=== PATIENT | male | born 1950 | race Caucasian/White ===

== ENCOUNTER → 2019-05-29 | Outpatient (CLI) | payer MEDICARE, OTHER ==
[~2019-05-29] MED LIST: ACEASPCAF; HYDACE5 PO; INDO75CR; KETO10 PO; OXYACE5T; PROACE100
== END | disposition home or self-care (01) ==
LOC: PLD 13:02 → LAB SHORT 13:02
DX: L30.8 Other specified dermatitis (principal)
CPT/HCPCS: 88305

== ENCOUNTER → 2019-07-23 | Outpatient (CLI) | payer MEDICARE, OTHER ==
[~2019-07-23] MED LIST changes: +ACIDOPHILUS; +ACTOS; +INDO50S; +LOSA50 PO; +METF500; +SITA100T2 PO; +SYNTHROID150 MCG; +ZOLP5; +Zantac150 MG; +[UNRECOGNIZED DRUG - OTHER]; +[UNRECOGNIZED DRUG - OTHER]
== END ==
LOC: LAB SHORT 11:39 → LAB 11:39
DX: Z01.812 Encounter for preprocedural laboratory examination (principal); E11.65 Type 2 diabetes mellitus with hyperglycemia
CPT/HCPCS: 83036

== ENCOUNTER 2019-07-25 05:52 | Day surgery (SDC) | payer MEDICARE, OTHER ==
[~2019-07-25] VITALS: Ht 170.2 cm; Wt 125.4 kg
--- NOTE | 2019-07-25 07:41 | NUR ---
Ambulatory in Day Surgery. Surgical site prepped with 2% Chlorhexidine cloth wipe. History, Chart, Medications and Allergies reviewed before start of procedure.Lungs clear T/O to Auscultation. Pre-Op teaching done. Pt verbalizes understanding. Patient States Post-Procedure ride home has been arranged. Patient reports completing Chlorhexadine shower X2 prior to admission to hospital.
--- NOTE | 2019-07-25 09:50 | NUR ---
Patient up to Ambulate independently. Gait steady. Discharge instructions reviewed with patient. Patient verbalizes understanding. Copy given to patient to take home. Discharged via wheelchair to private car for ride home WITH FRIEND.
== END 2019-07-25 09:45 | disposition home or self-care (01) ==
LOC: ORSCMMR 05:52 → ORD 07:30 → ORSCMMR 09:45
PROVIDERS: Surgery
PROC: 05HM33Z Insertion of Infusion Device into Right Internal Jugular Vein, Percutaneous Approach (ICD-10-PCS; principal; 2019-07-25 07:30)
PROC: B5131ZA Fluoroscopy of Right Jugular Veins using Low Osmolar Contrast, Guidance (ICD-10-PCS; principal; 2019-07-25 07:30)
DX: D46.A Refractory cytopenia with multilineage dysplasia (principal); I10 Essential (primary) hypertension; E11.9 Type 2 diabetes mellitus without complications; E03.9 Hypothyroidism, unspecified; E66.01 Morbid (severe) obesity due to excess calories; Z68.41 Body mass index [BMI] 40.0-44.9, adult; Z79.899 Other long term (current) drug therapy
CPT/HCPCS: 71045; 82947; C1788; J0690; J1642; J2250; J2704; J3010; J7120

== ENCOUNTER → 2021-05-04 | Outpatient (CLI) | payer MEDICARE, OTHER | LOC: LAB 11:11 → LAB SHORT 11:11 | DX: D48.5 Neoplasm of uncertain behavior of skin (principal); L57.0 Actinic keratosis | CPT/HCPCS: 88305 ==

== ENCOUNTER 2022-06-07 04:05 | Day surgery (SDC) | payer MEDICARE, OTHER ==
[2022-06-07] MEDS ORDERED: ACTOS30 MG PO (10:45)
[2022-06-07] MEDS ORDERED: ACYCLOVIR800 MG PO (10:45)
[2022-06-07] MEDS ORDERED: TRESIBA FL100 UNIT/2 SC (10:47)
[2022-06-07] MEDS ORDERED: CALCIPOTRIENE TOP (10:48)
[2022-06-07] MEDS ORDERED: LEVO750 PO (10:49)
[2022-06-07] MEDS ORDERED: LEVOTHYROXINE150 MC1 PO (10:50)
[2022-06-07] MEDS ORDERED: Fluticasone Pro15 GM TOP (10:52)
== END 2022-06-07 12:07 | disposition home or self-care (01) ==
LOC: ATC 04:05
DX: D46.A Refractory cytopenia with multilineage dysplasia (principal); I10 Essential (primary) hypertension; E11.9 Type 2 diabetes mellitus without complications; E78.5 Hyperlipidemia, unspecified; E03.9 Hypothyroidism, unspecified; Z79.899 Other long term (current) drug therapy
CPT/HCPCS: 36415; 36430; 86850; 86900; 86901; 86920; J7040; P9016

== ENCOUNTER → 2022-10-20 | Outpatient (CLI) | payer MEDICARE, OTHER ==
[~2022-10-20] MED LIST changes: +ACTOS30 MG PO; +ACYCLOVIR800 MG PO; +CALCIPOTRIENE TOP; +Fluticasone Pro15 GM TOP; +LEVO750 PO; +LEVOTHYROXINE150 MC1 PO; +TRESIBA FL100 UNIT/2 SC
[2022-10-20 18:36] LABS: Albumin/Globulin Ratio 0.8 (0.8-1.8); Bilirubin, Total 0.4 mg/dL (0.1-1.0); Bun/Creatinine Ratio 22.4 (12.0-20.0); Calcium, Blood 9.4 mg/dL (8.5-10.1); Creatinine, Blood 0.89 mg/dL (0.60-1.20); Globulin, Blood 3.6 g/dL (2.2-4.0); Potassium, Blood 4.6 mmol/L (3.5-5.5); Total Protein, Blood 6.6 g/dL (6.4-8.2)
== END | disposition home or self-care (01) ==
LOC: LAB SHORT 16:46
PROVIDERS: Physician Assistant
DX: R60.0 Localized edema (principal)
CPT/HCPCS: 80053

== ENCOUNTER 2023-01-17 12:28 | Day surgery (SDC) | payer MEDICARE, OTHER ==
[2023-01-17 10:50] LABS: Hematocrit 21.6 % (37.0-53.0); Hemoglobin 7.4 g/dL (13.5-17.5); Mean Corpuscular HGB 31.8 pg (26.0-34.0); Mean Corpuscular HGB Conc 34.3 g/dL (31.5-36.5); Mean Corpuscular Volume 93 fL (80-100); Mean Platelet Volume 10.9 fL (9.1-12.4); NRBC ABSOLUTE 0.05 K/mm3 (0.00-0.02); NRBC Auto 17.9 /100 WBC (0.0-0.2); Platelet Count 96 K/mm3 (150-400); RDW Coefficient Variation 19.5 % (11.7-14.2); Red Blood Cell Count 2.33 M/mm3 (4.30-5.90)
[2023-01-17 10:55] LABS: White Blood Cell Count 0.28 K/mm3 (4.00-11.30)
[2023-01-17 12:09] LABS: BAND PERCENT MAN 4 % (0-8); BASOPHILS PERCENT MAN 0 % (0-2); EOSINOPHILS PERCENT MAN 0 % (0-6); LYMPHOCYTES % ATYPICAL MANUAL 4 % (0-0); LYMPHOCYTES ABSOLUTE MAN 0.17 K/mm3 (0.84-5.20); LYMPHOCYTES PERCENT MAN 60 % (21-46); MONOCYTES PERCENT MAN 0 % (4-13); NEUTROPHILS ABSOLUTE MAN 0.04 K/mm3 (1.96-9.15); PLASMA CELL ABSOLUTE MAN 0.05 K/mm3 (0.00-0.00); PLASMA CELLS PERCENT MAN 20 % (0-0); SEG NEUTROPHILS PERCENT MAN 12 % (41-73); TOTAL CELLS COUNTED 25
[~2023-01-17 12:28] MED LIST changes: +ONDA4ODT MM
[2023-01-17 13:57] VITALS: BP 142/74
[2023-01-17 14:16] VITALS: BP 137/65
[2023-01-17 15:29] VITALS: BP 144/64
== END 2023-01-17 15:37 | disposition home or self-care (01) ==
LOC: ATC 12:28
PROVIDERS: Internal Medicine Hematology & Oncology
DX: D46.9 Myelodysplastic syndrome, unspecified (principal)
CPT/HCPCS: 36415; 85025; 86850; 86900; 86901; 86923; J1642; J7050; P9016

== ENCOUNTER 2023-01-22 10:03 | Inpatient (IN) | payer MEDICARE, OTHER ==
[~2023-01-22] VITALS: Ht 170.2 cm; Wt 110.0 kg
[2023-01-22 10:24] LABS: BASOPHILS ABSOLUTE AUTO 0.01 K/mm3 (0.00-0.23); BASOPHILS PERCENT AUTO 1 % (0-2); Hematocrit 26.7 % (37.0-53.0); Hemoglobin 9.3 g/dL (13.5-17.5); Mean Corpuscular HGB 30.2 pg (26.0-34.0); Mean Corpuscular HGB Conc 34.8 g/dL (31.5-36.5); Mean Corpuscular Volume 87 fL (80-100); NRBC ABSOLUTE 0.17 K/mm3 (0.00-0.02); NRBC Auto 12.5 /100 WBC (0.0-0.2); Platelet Count 83 K/mm3 (150-400); RDW Coefficient Variation 19.3 % (11.7-14.2); RDW Standard Deviation 52.7 fL (35.1-46.3); Red Blood Cell Count 3.08 M/mm3 (4.30-5.90); White Blood Cell Count 1.36 K/mm3 (4.00-11.30)
[2023-01-22 10:25] LABS: EOSINOPHILS PERCENT AUTO 0 % (0-6); IMMATURE GRAN ABSOLUTE AUTO 0.14 K/mm3 (0.00-0.10); IMMATURE GRAN PERCENT AUTO 10 % (0-1); LYMPHOCYTES ABSOLUTE AUTO 0.45 K/mm3 (0.84-5.20); LYMPHOCYTES PERCENT AUTO 33 % (21-46); MONOCYTES PERCENT AUTO 7 % (4-13); Mean Platelet Volume 13.3 fL (9.1-12.4); NEUTROPHILS ABSOLUTE AUTO 0.66 K/mm3 (1.96-9.15); NEUTROPHILS PERCENT AUTO 49 % (41-73)
[2023-01-22] MEDS ORDERED: OMEP20ER PO (10:33)
[2023-01-22 10:41] LABS: Albumin, Blood 1.3 g/dL (3.4-5.0); Albumin/Globulin Ratio 0.2 (0.8-1.8); Bilirubin, Total 1.2 mg/dL (0.1-1.0); Bun/Creatinine Ratio 32.9 (12.0-20.0); Calcium, Blood 8.6 mg/dL (8.5-10.1); Creatinine, Blood 2.37 mg/dL (0.60-1.20); Globulin, Blood 5.2 g/dL (2.2-4.0); Potassium, Blood 3.9 mmol/L (3.5-5.5); Total Protein, Blood 6.5 g/dL (6.4-8.2)
[2023-01-22 13:56] VITALS: BP 115/59
--- NOTE | 2023-01-22 17:40 | NUR ---
PT CAME UP FROM ER THIS AFTERNOON. ORIENTED TO THE ROOM. PROVIDED SNACKS AND A DRINK. HIS BED IS IN THE LOW POSITON AND CALL LIGHT IS WITHIN REACH.
[2023-01-22 20:51] VITALS: BP 116/64
[2023-01-22 20:53] LABS: Adenovirus Not Detected (NOT DETECT); Bordetella pertussis Not Detected (NOT DETECT); Chlamydophila pneumoniae Not Detected (NOT DETECT); Coronavirus 229E Not Detected (NOT DETECT); Coronavirus HKU1 Not Detected (NOT DETECT); Coronavirus NL63 Not Detected (NOT DETECT); Coronavirus OC43 Not Detected (NOT DETECT); Human Metapneumovirus Not Detected (NOT DETECT); Human Rhinovirus/Enterovirus Not Detected (NOT DETECT); Influenza A/2009-H1 Not Detected (NOT DETECT); Influenza A/H1 Not Detected (NOT DETECT); Influenza A/H3 Not Detected (NOT DETECT); Influenza B Not Detected (NOT DETECT); Mycoplasma pneumoniae Not Detected (NOT DETECT); Parainfluenza Virus 1 Not Detected (NOT DETECT); Parainfluenza Virus 2 Not Detected (NOT DETECT); Parainfluenza Virus 3 Not Detected (NOT DETECT); Parainfluenza Virus 4 Not Detected (NOT DETECT); Respiratory Syncytial Virus Not Detected (NOT DETECT); SARS-Cov-2 (COVID-19), BioFire Not Detected (NOT DETECT)
[2023-01-22 23:13] LABS: Source, Urine Clean Catch
[2023-01-22 23:24] LABS: Appearance, Urine Clear (Clear); Blood, Urine Neg (Neg); Color, Urine Amber (P-Yellow); Glucose Qualitative, Urine Neg (Neg); Ketones, Urine Neg (Neg); Leukocyte Esterase, Urine Neg (Neg); Nitrite, Urine Neg (Neg); Protein, Urine 2+ (Neg); Urobilinogen, Urine 1+ (Normal)
[2023-01-22 23:37] LABS: Bilirubin, Urine 1+ (Neg)
[2023-01-22 23:38] LABS: Red Blood Cells, Urine 0-2 /hpf (0-2); White Blood Cells, Urine 0-2 /hpf (0-5)
[2023-01-22 23:39] LABS: Bacteria Few /hpf; Hyaline Casts 0-2 /lpf (0-2); Squamous Epithelial Cells Rare /hpf (Few)
--- NOTE | 2023-01-23 04:07 | NUR ---
SHIFT SUMMARY A/OX2, IMPULSIVE, ATTEMPTING TO GET OOB T/O THE NIGHT. EASILY REDIRECTABLE. DENIES CHEST PAIN/PRESSURE. SPO2 >92% ON RA. VSS, NO ACUTE CHANGES AT THIS TIME. BED IN LOWEST POSTION WITH CALL LIGHT IN REACH. WILL CONTINUE TO MONITOR AND REPORT TO ONCOMING RN.
[2023-01-23 04:57] LABS: Hematocrit 22.6 % (37.0-53.0); Hemoglobin 7.7 g/dL (13.5-17.5); Mean Corpuscular HGB 30.2 pg (26.0-34.0); Mean Corpuscular HGB Conc 34.1 g/dL (31.5-36.5); Mean Corpuscular Volume 89 fL (80-100); Mean Platelet Volume 12.2 fL (9.1-12.4); NRBC ABSOLUTE 0.14 K/mm3 (0.00-0.02); NRBC Auto 15.4 /100 WBC (0.0-0.2); Platelet Count 56 K/mm3 (150-400); RDW Coefficient Variation 19.7 % (11.7-14.2); RDW Standard Deviation 55.3 fL (35.1-46.3); Red Blood Cell Count 2.55 M/mm3 (4.30-5.90)
[2023-01-23 05:14] LABS: Bun/Creatinine Ratio 39.1 (12.0-20.0); Calcium, Blood 8.2 mg/dL (8.5-10.1); Creatinine, Blood 2.25 mg/dL (0.60-1.20); Potassium, Blood 3.8 mmol/L (3.5-5.5)
[2023-01-23 05:16] LABS: White Blood Cell Count 0.91 K/mm3 (4.00-11.30)
[2023-01-23 07:17] VITALS: BP 121/68
[2023-01-23 14:34] VITALS: BP 104/46
--- NOTE | 2023-01-23 15:47 | NUR ---
SHIFT SUMMARY PT A&OX4, SLOW TO RESPOND AND MOVE. MOOD UP AND DOWN T/O SHIFT. PT VERBALIZES WANT TO DC HOME. EATING MIN. AMOUNT OF MEALS. DR. CEDEÑO IN TO SEE PT THIS SHIFT, STATED POSSIBLE NEPH CONSULT. PT WBC IS @ BASE PER DAVIDSON, AMS IS NOT. CALL LIGHT W/IN REACH. FRIEND IN TO SEE PT T/O SHIFT. CONT/INCONT. URINE DARK CONCENTRATE, URINATING SMALL AMOUNTS. VSS.
--- NOTE | 2023-01-23 18:12 | NUR ---
SHIFT SUMMARY REPORT RECIEVED FROM JOSE MIGUEL AT 1640 ON 01/23/23. PATIENT RESTING IN BED MOST OF SHIFT, REFUSED DINNER AND INSULIN. AGREABLE TO OTHER MEDICATIONS. OTHERWISE COOPERATIVE WITH CARE. AOX4 BUT NOT AWARE OF LIMITATIONS. BED ALARM ON, CALL LIGHT IN REACH. WILL CONTINUE TO MONITOR.
[2023-01-23 18:42] VITALS: BP 130/59
[2023-01-23 20:34] VITALS: BP 86/58
[2023-01-23 21:36] VITALS: BP 113/69
[2023-01-24 05:24] VITALS: BP 103/59
--- NOTE | 2023-01-24 07:44 | NUR ---
SHIFT SUMMARY NOC PT A/O X 3-4. GETS CONFUSED AT TIMES UPON WAKING. PT WAS INCONTINENT OF URINE X 3. PT STILL HAS UNCOLLECTED STOOL SAMPLE TO R/O CDIFF. PT HAS NS INFUSING @ 100 MLS/HR. PT SEEMS TO HAVE ISSUES SWALLOWING MORE THAN 1 PILL AT A TIME, SO ONE AT A TIME SLOWLY WORKS BEST. PT IS CURRENTLY RESTING WITH BED ALARM ON, BED IN LOWEST POSITION, AND CALL LIGHT WITHIN REACH.
[2023-01-24 07:47] VITALS: BP 116/66
[2023-01-24 09:01] LABS: Hematocrit 23.1 % (37.0-53.0); Mean Corpuscular HGB 30.7 pg (26.0-34.0); Mean Corpuscular HGB Conc 34.6 g/dL (31.5-36.5); Mean Corpuscular Volume 89 fL (80-100); NRBC ABSOLUTE 0.17 K/mm3 (0.00-0.02); NRBC Auto 16.5 /100 WBC (0.0-0.2); RDW Coefficient Variation 19.9 % (11.7-14.2); RDW Standard Deviation 55.4 fL (35.1-46.3); Red Blood Cell Count 2.61 M/mm3 (4.30-5.90); White Blood Cell Count 1.03 K/mm3 (4.00-11.30)
[2023-01-24 09:05] LABS: Mean Platelet Volume 11.6 fL (9.1-12.4); Platelet Count 38 K/mm3 (150-400)
[2023-01-24 09:36] LABS: Albumin, Blood 1.2 g/dL (3.4-5.0); Anion Gap 8 mmol/L (6-16); Blood Urea Nitrogen 83 mg/dL (8-24); Bun/Creatinine Ratio 36.9 (12.0-20.0); CO2, Blood 19 mmol/L (21-32); Calcium, Blood 6.8 mg/dL (8.5-10.1); Chloride, Blood 118 mmol/L (98-108); Creatinine, Blood 2.25 mg/dL (0.60-1.20); Glomerular Filtration Rate 30 (60-); Glucose, Blood 153 mg/dL (70-99); Magnesium, Blood 1.8 mg/dL (1.6-2.4); Phosphorus, Blood 2.9 mg/dL (2.5-4.9); Potassium, Blood 3.7 mmol/L (3.5-5.5); Sodium, Blood 145 mmol/L (136-145)
[2023-01-24 09:51] LABS: BAND PERCENT MAN 10 % (0-8); BASOPHILS PERCENT MAN 0 % (0-2); EOSINOPHILS PERCENT MAN 0 % (0-6); LYMPHOCYTES % ATYPICAL MANUAL 2 % (0-0); LYMPHOCYTES ABSOLUTE MAN 0.18 K/mm3 (0.84-5.20); LYMPHOCYTES PERCENT MAN 16 % (21-46); METAMYELOCYTE ABSOLUTE MAN 0.02 K/mm3 (0.00-0.00); METAMYELOCYTE PERCENT MAN 2 % (0-0); MONOCYTES ABSOLUTE MAN 0.06 K/mm3 (0.16-1.47); MONOCYTES PERCENT MAN 6 % (4-13); NEUTROPHILS ABSOLUTE MAN 0.74 K/mm3 (1.96-9.15); PROMYELOCYTE ABSOLUTE MAN 0.02 K/mm3 (0.00-0.00); PROMYELOCYTE PERCENT MAN 2 % (0-0); SEG NEUTROPHILS PERCENT MAN 62 % (41-73); TOTAL CELLS COUNTED 50
--- NOTE | 2023-01-24 12:14 | NUR ---
PT ASSISTED TO THE BSC 2P MODERATE ASSIST. PT MISSED THE COMMODE AND URINATED ON THE FLOOR, VOID UNMEASURED, DARK YELLOW BROWN URINE.
[2023-01-24 15:13] VITALS: BP 95/61
[2023-01-24 17:31] VITALS: BP 88/57
--- NOTE | 2023-01-24 17:51 | NUR ---
CALLED DR MONTEJO- PT BP WAS LOWER THIS EVENING COMPARED TO THIS MORNING. PT HAS BEEN A LITTLE MORE ACTIVE TRANSFERING FROM THE BED TO THE COMODE WITH STAFF ASSISTANCE. PT WAS FINALLY ABLE TO PROVIDE A STOOL SAMPLE TO SEND TO THE LAB, STOOL WAS THICK AND GREENISH BROWN. PT DENIES DIZZINESS OR FEELING OFF. CALLED MD THE PT BP WAS LOWER DESPITE RECIEVING IVF AT 100ML/HR ALL SHIFT. BP WAS RECHECKED MANUALLY FOR ACCURACY. ALSO PER MD NOTE THE PT WAS SUPPOSED TO CONTINUE TO PARTICIPATE WITH PT/OT HOWEVER THERE IS NOT A CURRENT ORDER. IN THE CHART. ORDER PLACED IN ORDER MANAGEMENT PER DR MONTEJO.
--- NOTE | 2023-01-24 18:05 | NUR ---
SPOKE TO DR MONTEJO- SINCE BP IS LOWER DESPITE IVF NEW ORDER FOR STAT CBC RECIEVED. ORDER PLACED IN ORDER MANAGEMENT.
--- NOTE | 2023-01-24 18:48 | NUR ---
SHIFT SUMMARY PATIENT ALERT AND INTERACTIVE THROUGHOUT SHIFT. PATIENT UP TO COMMODE MULTIPLE TIMES TO VOID AND WAS ABLE TO HAVE A LIQUID BROWN/GREEN STOOL. STOOL SPECIMIN SENT TO LAB PER ORDERS. PATIENT DRINKING WATER BUT ONLY EATING BITES OF FOOD. PATIENT HAS NO DESIRE TO EAT AT THIS TIME. URINE DARK BROWN AT START OF SHIFT AND HAS PROGRESSED TO A JOSE MIGUEL COLOR BY END OF SHIFT. PATIENT INCONTINENT X1. MEPILEX PLACED TO COCCYX FOR PREVENTION. COCCYX AREA REDENNED BUT BLANCHES. BARRIER CREAM APPLIED TO RECTUM BECAUSE OF TENDERNESS AFTER HAVING BOWEL MOVEMENT. REPEAT H&H DRAWN BECAUSE AFTERNOON BLOOD PRESSURE 90/S MANUALLY. PATIENT MORE ALERT AT END OF SHIFT BUT EASILY IRRITABLE IF ASKED TO REPEAT HIMSELF, PATIENT IS IMPULSIVE AND SAFTEY MEASURES IN PLACE.
[2023-01-24 18:50] LABS: Hemoglobin 8.1 g/dL (13.5-17.5); Mean Corpuscular HGB 30.1 pg (26.0-34.0); Mean Corpuscular HGB Conc 33.8 g/dL (31.5-36.5); Mean Corpuscular Volume 89 fL (80-100); Mean Platelet Volume 11.4 fL (9.1-12.4); NRBC ABSOLUTE 0.19 K/mm3 (0.00-0.02); NRBC Auto 17.6 /100 WBC (0.0-0.2); RDW Coefficient Variation 20.1 % (11.7-14.2); RDW Standard Deviation 57.7 fL (35.1-46.3); Red Blood Cell Count 2.69 M/mm3 (4.30-5.90); White Blood Cell Count 1.08 K/mm3 (4.00-11.30)
[2023-01-24 19:03] LABS: Platelet Count 41 K/mm3 (150-400)
--- NOTE | 2023-01-24 19:06 | NUR ---
CALLED DR MONTEJO- CRITICAL PLATELET LEVEL, CRITICAL BUT HIGHER THAN PREVIOUS. LEFT A MESSAGE.
[2023-01-24 19:45] VITALS: BP 110/65
[2023-01-24 20:27] LABS: BAND PERCENT MAN 31 % (0-8); BASOPHILS PERCENT MAN 0 % (0-2); EOSINOPHILS PERCENT MAN 0 % (0-6); LYMPHOCYTES ABSOLUTE MAN 0.25 K/mm3 (0.84-5.20); LYMPHOCYTES PERCENT MAN 24 % (21-46); MONOCYTES ABSOLUTE MAN 0.06 K/mm3 (0.16-1.47); MONOCYTES PERCENT MAN 6 % (4-13); NEUTROPHILS ABSOLUTE MAN 0.75 K/mm3 (1.96-9.15); SEG NEUTROPHILS PERCENT MAN 39 % (41-73); TOTAL CELLS COUNTED 100
[2023-01-24 23:08] LABS: Adenovirus F 40/41 Not Detected (NOT DETECT); Astrovirus Not Detected (NOT DETECT); Campylobacter Sp Not Detected (NOT DETECT); Cryptosporidium Not Detected (NOT DETECT); Cyclospora Cayetanensis Not Detected (NOT DETECT); E. Coli O157 Not Detected (NOT DETECT); Entamoeba Histolytica Not Detected (NOT DETECT); Enteroaggregative E. coli-EAEC Not Detected (NOT DETECT); Enteropathogenic E. coli-EPEC Not Detected (NOT DETECT); Enterotoxigenic E. coli-ETEC Not Detected (NOT DETECT); Giardia Lamblia Not Detected (NOT DETECT); Norovirus GI/GII Not Detected (NOT DETECT); Plesiomonas Shigelloides Not Detected (NOT DETECT); Rotavirus A Not Detected (NOT DETECT); Salmonella Sp Not Detected (NOT DETECT); Sapovirus Not Detected (NOT DETECT); Shiga Toxin-prod E. coli-STEC Not Detected (NOT DETECT); Shigella/Enteroin E. coli-EIEC Not Detected (NOT DETECT); Vibrio Cholerae Not Detected (NOT DETECT); Vibrio Sp Not Detected (NOT DETECT); Yersinia Enterocolitica Not Detected (NOT DETECT)
[2023-01-25 06:12] LABS: Hematocrit 21.8 % (37.0-53.0); Hemoglobin 7.6 g/dL (13.5-17.5); Mean Corpuscular HGB 30.5 pg (26.0-34.0); Mean Corpuscular HGB Conc 34.9 g/dL (31.5-36.5); Mean Corpuscular Volume 88 fL (80-100); Mean Platelet Volume 11.7 fL (9.1-12.4); NRBC ABSOLUTE 0.21 K/mm3 (0.00-0.02); NRBC Auto 16.4 /100 WBC (0.0-0.2); RDW Coefficient Variation 20.2 % (11.7-14.2); RDW Standard Deviation 55.3 fL (35.1-46.3); Red Blood Cell Count 2.49 M/mm3 (4.30-5.90); White Blood Cell Count 1.28 K/mm3 (4.00-11.30)
[2023-01-25 06:25] LABS: Platelet Count 37 K/mm3 (150-400)
[2023-01-25 06:29] LABS: Albumin, Blood 1.1 g/dL (3.4-5.0); Anion Gap 8 mmol/L (6-16); Blood Urea Nitrogen 72 mg/dL (8-24); CO2, Blood 18 mmol/L (21-32); Chloride, Blood 117 mmol/L (98-108); Creatinine, Blood 2.18 mg/dL (0.60-1.20); Glomerular Filtration Rate 31 (60-); Glucose, Blood 137 mg/dL (70-99); Magnesium, Blood 1.8 mg/dL (1.6-2.4); Phosphorus, Blood 2.9 mg/dL (2.5-4.9); Potassium, Blood 3.5 mmol/L (3.5-5.5); Sodium, Blood 143 mmol/L (136-145)
--- NOTE | 2023-01-25 06:35 | NUR ---
SHIFT SUMMARY PT LAYING IN BED WITH EYES CLOSED DURING BEDSIDE REPORT- IV INFUSING WITHOUT PROBLEMS- PT DENIES PAIN- PT PUT ON CONTACT PRECAUTIONS FOR GI PANEL PENDING- NEUTROPENIC PRECAUTIONS IN PLACE- PT TOOK SCHEDULED HS MEDS WITHOUT PROBLEMS, PT HAD INCONTIENT EPISODE OF LOOSE STOOL- PT CONFUSED AND HAD IT ALL OVER HIS HANDS AND ON HIS BLANKETS- CLEANED UP PT, COMPLETE BED CHANGE DONE- APPLIED CALMOSEPTINE CREAM AROUND RECTUM AREA D/T REDNESS AND PT COMPLAINS OF PAIN WHEN BEING WIPED- PT REMOVED FROM CONTACT PRECAUTIONS- GI PANEL ALL NEGATIVE, IV FLUIDS INFUSING T/O NIGHT WITHOUT PROBLEMS, PT USING THE FEMALE URINAL WITH ASSISTANCE- ENCOURAGED PT TO DRINK MORE LIQUIDS- PT AGREED AND DRINKING BOTTLED WATER- BED LOW POSITION, CALL LIGHT WITHIN REACH
[2023-01-25 06:42] LABS: BAND PERCENT MAN 14 % (0-8); BASOPHILS PERCENT MAN 0 % (0-2); EOSINOPHILS PERCENT MAN 0 % (0-6); LYMPHOCYTES ABSOLUTE MAN 0.32 K/mm3 (0.84-5.20); LYMPHOCYTES PERCENT MAN 25 % (21-46); METAMYELOCYTE ABSOLUTE MAN 0.02 K/mm3 (0.00-0.00); METAMYELOCYTE PERCENT MAN 2 % (0-0); MONOCYTES ABSOLUTE MAN 0.07 K/mm3 (0.16-1.47); MONOCYTES PERCENT MAN 6 % (4-13); NEUTROPHILS ABSOLUTE MAN 0.84 K/mm3 (1.96-9.15); SEG NEUTROPHILS PERCENT MAN 52 % (41-73); TOTAL CELLS COUNTED 63
[2023-01-25 08:02] VITALS: BP 106/59
--- NOTE | 2023-01-25 14:06 | NUR ---
PT OKED TO PROVIDE INFO TO FRIEND KAVYA DUDLEY
--- NOTE | 2023-01-25 14:35 | NUR ---
Attempted initial visit with new referral received this am. Review of EMR and case conferenced with pt's RN. Upon arrival to the room, pt was doing some paperwork with two staff members and a granulizing machine operator was waiting outside the door to go in and draw for labs. I will return later today if possible.
[2023-01-25 16:19] VITALS: BP 122/65
--- NOTE | 2023-01-25 16:35 | NUR ---
Second attempt to see pt after RN notified me that all other staff out of room. Knocked and entered room. Pt sleeping soundly. He did not wake to voice or gentle touch. Will try again in am.
--- NOTE | 2023-01-25 19:15 | NUR ---
RECEIVED REPORT AND ASSUMED CARE OF PT. PT REPORTED BM, DAY SHIFT RN ASSISTED THIS RN TO ASSIST PT. CALL LIGHT IN REACH. PT REQUESTED ICE CHIPS, PER [employer] STANDARD OF PRACTICE DOES NOT INCLUDE ICE CHIPS FOR PT ON NEUTROPENIC PRECAUTIONS.
--- NOTE | 2023-01-25 20:00 | NUR ---
SHIFT SUMMARY- PT STOOL SAMPLE CAME BACK NEGATIVE FOR C-DIFF. PT IS STILL HAVING FREQUENT INCONTINENT WATERY AND MUCOSY STOOLS. THIS EVENING THE PT DID DRINK HIS GLUCERNA, AT SHIFT CHANGE A FULL BED CHANGE WAS PERFORMED. PT HAD A LARGE BROWN LIQUID STOOL REQUIRING LINNEN CHANGE. PT HAS AN ORDER TO START BANATROL FLAKES TONIGHT. NIGHT RN ASSISTED WITH THE BED CHANGE. CARLY ANAL SKIN IS A LITTLE TENDER AND EXCORIATED. PT IS IN BED, CALL LIGHT IN REACH NO S&S OF DISTRESS NOTED AT THE TIME OF SHIFT CHANGE, BEDSIDE REPORT COMPLETED WITH THE NIGHT RN GIOVANNI. IV STARTED LEAKING AT THE TIME OF SHIFT CHANGE, IV SL DURRING BED CHANGE AND NIGHT RN WILL EVALUATE.
[2023-01-25 20:07] VITALS: BP 115/62
[2023-01-25 20:10] VITALS: BP 97/56
[2023-01-26] VITALS (13 sets, daily range): BP systolic 101–144; BP diastolic 57–123
[2023-01-26 05:26] LABS: Hematocrit 20.6 % (37.0-53.0); Hemoglobin 6.9 g/dL (13.5-17.5); Mean Corpuscular HGB Conc 33.5 g/dL (31.5-36.5); Mean Corpuscular Volume 90 fL (80-100); Mean Platelet Volume 12.1 fL (9.1-12.4); NRBC ABSOLUTE 0.25 K/mm3 (0.00-0.02); RDW Coefficient Variation 20.3 % (11.7-14.2); RDW Standard Deviation 58.9 fL (35.1-46.3); White Blood Cell Count 1.19 K/mm3 (4.00-11.30)
[2023-01-26 05:50] LABS: Platelet Count 30 K/mm3 (150-400)
[2023-01-26 05:56] LABS: Anion Gap 6 mmol/L (6-16); Blood Urea Nitrogen 65 mg/dL (8-24); Bun/Creatinine Ratio 30.8 (12.0-20.0); CO2, Blood 19 mmol/L (21-32); Calcium, Blood 6.4 mg/dL (8.5-10.1); Chloride, Blood 118 mmol/L (98-108); Creatinine, Blood 2.11 mg/dL (0.60-1.20); Glomerular Filtration Rate 33 (60-); Glucose, Blood 150 mg/dL (70-99); Magnesium, Blood 1.8 mg/dL (1.6-2.4); Phosphorus, Blood 3.4 mg/dL (2.5-4.9); Potassium, Blood 3.5 mmol/L (3.5-5.5); Sodium, Blood 143 mmol/L (136-145)
[2023-01-26 06:28] LABS: BAND PERCENT MAN 12 % (0-8); BASOPHILS PERCENT MAN 0 % (0-2); EOSINOPHILS PERCENT MAN 0 % (0-6); LYMPHOCYTES ABSOLUTE MAN 0.33 K/mm3 (0.84-5.20); LYMPHOCYTES PERCENT MAN 28 % (21-46); MONOCYTES ABSOLUTE MAN 0.09 K/mm3 (0.16-1.47); MONOCYTES PERCENT MAN 8 % (4-13); NEUTROPHILS ABSOLUTE MAN 0.76 K/mm3 (1.96-9.15); SEG NEUTROPHILS PERCENT MAN 52 % (41-73); TOTAL CELLS COUNTED 50
--- NOTE | 2023-01-26 06:51 | NUR ---
SHIFT SUMMARY: PT IS A&O X 4. VSS, NO ACUTE EVENTS OVERNIGHT. LAB CALLED CRITICAL PLATELET VALUE OF 30, CLINICIAN CALLED, NO NEW ORDERS. PT TAKES HIS PILLS WHOLE WITH WATER[facility] IV FLUIDS INFUSING. PT IS ABLE TO TURN AND REPOSITION HIMSELF IN BED WITH MINIMAL ASSISTANCE. PT IS INCONTINENT OF STOOL, CONTINENT OF URINE. HE USES THE CALL LIGHT APPROPRIATELY. ATTENDS IN PLACE. PT DOES HAVE EXCORIATION TO HIS CARLY-ANAL AREA, BARRIER CREAM APPLIED. WCTM UNTIL REPORT IS GIVEN TO DAY SHIFT RN.
--- NOTE | 2023-01-26 11:34 | NUR ---
Initial [facility] visit: Pt sleeping upon arrival. He was able to wake up today and was agreeable to me sitting at side of bed to visit. He was drowsy at times but engaged in the conversation despite profound fatigue. Pt has orders for transfusion today and is hoping this will give him some energy. He has not been able to participate with OT/PT and would like to. He verbalized that he is unsure if he will be able to continue treatment for his myelodysplastic syndrome after speaking with Dr Brambila earlier in the week and his Drs here. He stated he is unsure he would want to even if it is offered again. He stated the plan, then corrected himself, saying "MY plan", is to get my will finished and then to go on hospice care. He shared that he felt he started the process of finalizing his personal affairs "a little too late". Completing his will/trust and final arrangements are his primary concern at this time. He has an trade mark attorney & his cousin doing much of the leg work to assist him in getting these things done. He said they have most of it done now. I allowed him to ask questions about EOL/hospice care and they were answered. I gave pt info on local hospice providers and possible settings where they would visit him if he was unable to stay in his own home. Information given to pt along with [facility] contact info/card. Brochure "[facility]" given to help generate questions for his providers. I encouraged him to utilize the [facility] services available to him via the hospice agency if he made the decision to enroll in hospice care. Pt denies severe pain. His primary s/s are dry mouth, profound fatigue, feeling depressed and anxious at times r/t his current health status. I assisted him with sips of water t/o my visit. He was able to swallow without s/s of aspiration but he is very weak. Pt expressed appreciation for the visit and asked for the remaining lights to be turned out so that he could rest until lunch. When I returned to leave additional written materials and our card he was sound asleep and did not wake with me in the room. Report on my visit given to his RN. Plan for [facility] f/u for support on Sunday if pt remains hospitalized.
--- NOTE | 2023-01-26 17:59 | NUR ---
SHIFT SUMMARY: PATIENT A&OX3. WITHDRAWN, CALM, PLEASANT AND COOPERATIVE c CARE. PATIENT DENIES CP/PRESSURE, N/V, AND SOB. LUNGS CLEAR. RECEIVED 2 UNITS OF PRBC THIS SHIFT. BS RANGES [id number]. RECEIVED INSULIN COVERAGE PER SLIDING SCALE. PATIENT HAD 5 EPISODE INCONTINENCE OF LIQUID STOOL THIS SHIFT. REPORTS PAIN 3/10 TO CARLY ANAL AREA. APPLIED CALAZIME CREAM TO CARLY ANAL AREA AND MEDICATED X1 c TYLENOL c GOOD RELIEF. REPOSITIONED, CARLY CARE DONE AND ATTENDS CHANGED T/O SHIFT. PATIENT REPORTS NO APPETITE HAD COUPLE BITES c MEALS. ABLE TO TOLERATE PROTIEN SHAKE. RECEIVED SCHEDULED MEDS PER EMAR. VITAL SIGNS REVIEWED. PORT INFUSING NS AT 100 MLS/HR. CALL LIGHT IN REACH.
[2023-01-27 05:05] VITALS: BP 133/67
[2023-01-27 05:31] LABS: Hematocrit 26.1 % (37.0-53.0); Hemoglobin 9.1 g/dL (13.5-17.5); Mean Corpuscular HGB 29.8 pg (26.0-34.0); Mean Corpuscular HGB Conc 34.9 g/dL (31.5-36.5); Mean Corpuscular Volume 86 fL (80-100); NRBC ABSOLUTE 0.23 K/mm3 (0.00-0.02); RDW Coefficient Variation 19.4 % (11.7-14.2); RDW Standard Deviation 51.9 fL (35.1-46.3); Red Blood Cell Count 3.05 M/mm3 (4.30-5.90); White Blood Cell Count 1.15 K/mm3 (4.00-11.30)
[2023-01-27 05:41] LABS: Platelet Count 30 K/mm3 (150-400)
[2023-01-27 05:58] LABS: Albumin, Blood 1.1 g/dL (3.4-5.0); Anion Gap 5 mmol/L (6-16); Blood Urea Nitrogen 53 mg/dL (8-24); Bun/Creatinine Ratio 28.6 (12.0-20.0); CO2, Blood 20 mmol/L (21-32); Chloride, Blood 119 mmol/L (98-108); Creatinine, Blood 1.85 mg/dL (0.60-1.20); Glomerular Filtration Rate 38 (60-); Glucose, Blood 140 mg/dL (70-99); Phosphorus, Blood 3.5 mg/dL (2.5-4.9); Potassium, Blood 3.4 mmol/L (3.5-5.5); Sodium, Blood 144 mmol/L (136-145)
[2023-01-27 06:02] LABS: BAND PERCENT MAN 2 % (0-8); BASOPHILS PERCENT MAN 0 % (0-2); EOSINOPHILS PERCENT MAN 0 % (0-6); LYMPHOCYTES PERCENT MAN 18 % (21-46); METAMYELOCYTE ABSOLUTE MAN 0.02 K/mm3 (0.00-0.00); METAMYELOCYTE PERCENT MAN 2 % (0-0); MONOCYTES ABSOLUTE MAN 0.09 K/mm3 (0.16-1.47); MONOCYTES PERCENT MAN 8 % (4-13); NEUTROPHILS ABSOLUTE MAN 0.82 K/mm3 (1.96-9.15); SEG NEUTROPHILS PERCENT MAN 70 % (41-73); TOTAL CELLS COUNTED 50
--- NOTE | 2023-01-27 06:44 | NUR ---
SHIFT SUMMARY: JORDANA IS A&OX4. VSS, NO ACUTE EVENTS OVERNIGHT. IV FLUIDS INFUSING THROUGH MEDIPORT AT 100 ML/HR. NO INSULIN COVERAGE REQUIRED THIS SHIFT. GFR AND CREATININE SLOWLY IMPROVING, CALCIUM SLOWLY IMPROVING, 7.0 TODAY. ALBUMIN 1.1 WHICH WAS A MARGINAL IMPROVEMENT FROM YESTERDAY. ORDER FOR TOPICAL LIDOCAINE CREAM OBTAINED FOR PT'S EXCORIATIONS TO THE CARLY-ANAL AREA WHICH PT REPORTS HAS PROVIDED RELIEF. ATTENDS IN PLACE, BARRIER CREAM APPLIED TO REDDENED AREAS. ORDER ALSO OBTAINED FOR IMODIUM, WHICH PT STATES IS EFFECTIVE FOR HIM AT HOME. REQUESTED PT TO NOTIFY OF NEXT BM AND IMODIUM CAN BE GIVEN. PT WAS TURNED AND REPOSITIONED TO ALLEVIATE THE PRESSURE TO HIS BOTTOM D/T INCREASE IN REDNESS TO BUTTOCKS. PT SLEPT ON HIS SIDE FOR PART OF THE NIGHT. HE IS ABLE TO MAKE HIS NEEDS KNOWN. PT IS LYING IN BED WITH THE CALL LIGHT IN REACH. WCTM UNTIL REPORT IS GIVEN TO DAY SHIFT RN.
[2023-01-27 07:13] VITALS: BP 140/76
[2023-01-27 17:12] VITALS: BP 134/70
--- NOTE | 2023-01-27 18:53 | NUR ---
SHIFT SUMMARY: PATIENT A&OX3. CONTINUES TO BE WITHDRAWN. SLOW TO RESPOND. PLEASANT AND COOPERATIVE c CARE. PATIENT HAD 3 LIQUID BROWN BM THIS SHIFT AND HAS BEEN IMPROVED FROM YESTERDAY. RECEIVED ONE DOSE OF IMMUDIOM THIS PM c GOOD RELIEF. PATIENT REPORTS HE HAS BEEN FEELING FULL AND FELT LIKE A LOT OF AIR BUILD UP IN HIS ABDOMEN. PER PATIENT "I HAVE BEEN BURPING AND I THINK THAT'S THE REASON WHY I DON'T FEEL LIKE EATING BECAUSE I FELT FULL ALL THE TIME." PATIENT REPORTS IF HE FEEL THIS WAY AT HOME HE TAKES GAS-X. CALLED DR. ZEPEDA TO REPORT PATIENT CONCERN. DR. ZEPEDA PLACED AN ORDER FOR GAS-X PRN. PT WORK c PATIENT MOBILITY IN BED THIS AM. DENIES CP/PRESSURE, SOB, N/V AND GENERALIZED PAIN. RECEIVED SCHEDULED MEDS PER EMAR. VITAL SIGNS REVIEWED. CALL LIGHT IN REACH.
[2023-01-27 19:53] VITALS: BP 135/79
[2023-01-28 05:04] VITALS: BP 145/63
[2023-01-28 06:28] LABS: Hematocrit 24.3 % (37.0-53.0); Hemoglobin 8.4 g/dL (13.5-17.5); Mean Corpuscular HGB 29.6 pg (26.0-34.0); Mean Corpuscular HGB Conc 34.6 g/dL (31.5-36.5); Mean Corpuscular Volume 86 fL (80-100); Mean Platelet Volume 11.1 fL (9.1-12.4); NRBC ABSOLUTE 0.13 K/mm3 (0.00-0.02); NRBC Auto 9.1 /100 WBC (0.0-0.2); RDW Coefficient Variation 19.9 % (11.7-14.2); RDW Standard Deviation 52.9 fL (35.1-46.3); Red Blood Cell Count 2.84 M/mm3 (4.30-5.90); White Blood Cell Count 1.43 K/mm3 (4.00-11.30)
[2023-01-28 06:42] LABS: Platelet Count 36 K/mm3 (150-400)
[2023-01-28 06:43] LABS: Albumin, Blood 1.1 g/dL (3.4-5.0); Anion Gap 8 mmol/L (6-16); Blood Urea Nitrogen 45 mg/dL (8-24); Bun/Creatinine Ratio 27.6 (12.0-20.0); CO2, Blood 17 mmol/L (21-32); Calcium, Blood 7.8 mg/dL (8.5-10.1); Chloride, Blood 118 mmol/L (98-108); Creatinine, Blood 1.63 mg/dL (0.60-1.20); Glomerular Filtration Rate 44 (60-); Glucose, Blood 122 mg/dL (70-99); Magnesium, Blood 1.7 mg/dL (1.6-2.4); Phosphorus, Blood 3.3 mg/dL (2.5-4.9); Potassium, Blood 3.6 mmol/L (3.5-5.5); Sodium, Blood 143 mmol/L (136-145)
[2023-01-28 07:10] LABS: BAND PERCENT MAN 6 % (0-8); BASOPHILS PERCENT MAN 0 % (0-2); EOSINOPHILS PERCENT MAN 0 % (0-6); LYMPHOCYTES ABSOLUTE MAN 0.31 K/mm3 (0.84-5.20); LYMPHOCYTES PERCENT MAN 22 % (21-46); MONOCYTES ABSOLUTE MAN 0.14 K/mm3 (0.16-1.47); MONOCYTES PERCENT MAN 10 % (4-13); NEUTROPHILS ABSOLUTE MAN 0.97 K/mm3 (1.96-9.15); SEG NEUTROPHILS PERCENT MAN 62 % (41-73); TOTAL CELLS COUNTED 50
--- NOTE | 2023-01-28 07:42 | NUR ---
JORDANA WAS VERY QUIET, APPEARED INTROSPECTIVE AND SAD OVERNIGHT. HE IS A&OX4, AND PROFOUNDLY WEAK. NO DIARRHEA STOOLS OVERNIGHT. SIMETHECONE GIVEN TWICE FOR UNCOMFORTABLE ABDOMINAL GAS WHICH DID RELIEVE HIS DISCOMFORT. INCONTINENT OF URINE. HE WAS RELIEVED WE DO HAVE IMMODIUM FOR HIM SHOULD HE NEED IT.
[2023-01-28 08:05] VITALS: BP 131/73
[2023-01-28 15:00] VITALS: BP 116/52
--- NOTE | 2023-01-28 17:07 | NUR ---
SHIFT SUMMARY: PATIENT A&OX3. PATIENT CONTINUES TO BE WITHDRAWN AND DEPRESSED. SLOW TO RESPOND AND VERY WEAK. PLUS 1 EDEMA TO BUE AND HIPS. PLUS 2 PITTING EDEMA TO BLE'S. SCD'S IN PLACED TO BLE'S. NO BM AND 550 MLS OF URINE OUTPUT THIS SHIFT. EXCORIATION TO CARLY ANAL AREA APPLIED LIDOCAINE TOP CREAM c GREAT RELIEF. RECEIVED BEDBATH AND LINEN CHANGED. REPOSITIONED T/O SHIFT. DENIES GENERALIZED PAIN. PATIENT CONTINUES TO HAVE NO APPETITE. DENIES N/V. REPORTS BELCHING T/O THE DAY. RECEIVED SCHEDULED MEDS PER EMAR. VITAL SIGNS REVIEWED. CALL LIGHT IN REACH.
[2023-01-28 19:30] VITALS: BP 118/104
--- NOTE | 2023-01-29 01:05 | NUR ---
DISCUSSED WITH PT THAT STANDARD OF PRACTICE FOR NEUTROPENIC PRECAUTIONS DOES NOT INCLUDE ICE OR WATER FROM THE PANTRY, USE OF BOTTLED WATER ONLY. EDUCATED ON RISK FOR EXPOSURE TO INFECTIOUS AGENTS AND RISK FOR INFECTION. PT STATES THAT HE UNDERSTANDS THE RISKS AND WISHES TO CONTINUE USING THE ICE.
[2023-01-29 03:20] VITALS: BP 138/60
--- NOTE | 2023-01-29 06:15 | NUR ---
SHIFT SUMMARY: JORDANA IS A&OX4. VSS, NO ACUTE EVENTS OVERNIGHT. HE REPORTS ADEQUATE PAIN CONTROL WITH THE TOPICAL LIDOCAINE. HIS APPETITE REMAINS QUITE POOR, BUT IS ABLE TO TOLERATE LIQUIDS WELL. HE HAS REPORTED A DISTENDED ABDOMEN AND BELCHING THIS SHIFT. HE STATES THAT HE PLANS TO DISCHARGE FROM THE HOSPITAL ON HOSPICE, BUT DOES NOT HAVE CAREGIVERS. ATTENDS IN PLACE FOR OCCASIONAL INCONTINENCE, HE HAS REQUESTED TO USE THE URINAL MULTIPLE TIMES THIS SHIFT, USUALLY URINATING SMALL AMOUNTS. HE IS LYING IN BED WITH THE CALL LIGHT IN REACH. WCTM UNTIL REPORT IS GIVEN TO DAY SHIFT RN.
[2023-01-29 08:09] LABS: Hematocrit 23.8 % (37.0-53.0); Hemoglobin 8.2 g/dL (13.5-17.5); Mean Corpuscular HGB 29.7 pg (26.0-34.0); Mean Corpuscular HGB Conc 34.5 g/dL (31.5-36.5); Mean Corpuscular Volume 86 fL (80-100); Mean Platelet Volume 11.3 fL (9.1-12.4); NRBC ABSOLUTE 0.06 K/mm3 (0.00-0.02); NRBC Auto 4.2 /100 WBC (0.0-0.2); RDW Coefficient Variation 20.5 % (11.7-14.2); RDW Standard Deviation 54.9 fL (35.1-46.3); Red Blood Cell Count 2.76 M/mm3 (4.30-5.90); White Blood Cell Count 1.43 K/mm3 (4.00-11.30)
[2023-01-29 08:13] LABS: Platelet Count 42 K/mm3 (150-400)
--- NOTE | 2023-01-29 08:18 | NUR ---
pt laying in bed awake a/ox3, pleasant and cooperative with care, follows commands well, denies pain, but reports his legs are uncomfortable and wants a break from the scuds, these were removed for a while, lungs are clear t/o, resp even and unlaobored, no cough noted, hrr, 2+ edema noted to b/l le, ppp+2, cap refill <3 sec, vs stable, afebrile, iv site is mediport to rcw, running tko, site clear, flushes well, btx4, abd soft nontender, a bit distended, briefs in place for incont, skin has escoriated bottom, otherwise c/w/d, kay, weak, PT/OT working with him, eliud, call light in reach.
[2023-01-29 08:30] VITALS: BP 141/92
[2023-01-29 08:31] LABS: Albumin, Blood 1.1 g/dL (3.4-5.0); Anion Gap 8 mmol/L (6-16); Blood Urea Nitrogen 43 mg/dL (8-24); Bun/Creatinine Ratio 26.9 (12.0-20.0); CO2, Blood 17 mmol/L (21-32); Calcium, Blood 7.8 mg/dL (8.5-10.1); Chloride, Blood 117 mmol/L (98-108); Glomerular Filtration Rate 45 (60-); Glucose, Blood 133 mg/dL (70-99); Phosphorus, Blood 3.7 mg/dL (2.5-4.9); Potassium, Blood 3.9 mmol/L (3.5-5.5); Sodium, Blood 142 mmol/L (136-145)
[2023-01-29 08:32] LABS: BAND PERCENT MAN 2 % (0-8); BASOPHILS PERCENT MAN 0 % (0-2); EOSINOPHILS PERCENT MAN 0 % (0-6); LYMPHOCYTES % ATYPICAL MANUAL 2 % (0-0); LYMPHOCYTES ABSOLUTE MAN 0.34 K/mm3 (0.84-5.20); LYMPHOCYTES PERCENT MAN 22 % (21-46); MONOCYTES ABSOLUTE MAN 0.11 K/mm3 (0.16-1.47); MONOCYTES PERCENT MAN 8 % (4-13); NEUTROPHILS ABSOLUTE MAN 0.97 K/mm3 (1.96-9.15); SEG NEUTROPHILS PERCENT MAN 66 % (41-73); TOTAL CELLS COUNTED 50
--- NOTE | 2023-01-29 11:24 | NUR ---
Requested to visit with [place] after medical floor IDT meeting. Dr. Parker states pt is leaning towards hospice. Met with Orlando in his room. He states he is interested in hospice care and would like to go to a facility for that care. He lives with a roommate, however his roommate is unable to provide care for him. Orlando is very weak and has difficulty adjusting himself in the bed. Discussed hospice care and what is included in that service. Discussed the three agencies that service our area. Information provided on all three hospice agencies. Pt reports he is in the process of working on a will and setting up a trust. He reports that he has the funds to pay privately for placement for hospice care. Spoke with CM who gave this law writer resources to take to [place]. [facility] resources booklet given, along with a list of in home providers. Options for placement with private pay at the LTC facilities [facility] and [facility] also discussed. Orlando states his cousin is coming to visit him today from the [facility]. He reports going home with family isn't an option. He will think about the options and discuss with family before he makes a decision about what he would like to do. CM RN and bedside RN updated. PC to continue to follow and will remain available for additional questions and advanced care planning prn.
[2023-01-29 15:20] VITALS: BP 153/72
--- NOTE | 2023-01-29 16:32 | NUR ---
has visitor in room, he states hes fine, and no needs at this time. call light in reach.
--- NOTE | 2023-01-29 18:05 | NUR ---
Pt has had an uneventful day, no needs or complaints, has had compainy most of the day. call light in reach.
[2023-01-30 04:23] VITALS: BP 130/52
[2023-01-30 05:16] LABS: Hematocrit 21.8 % (37.0-53.0); Hemoglobin 7.6 g/dL (13.5-17.5); Mean Corpuscular HGB Conc 34.9 g/dL (31.5-36.5); Mean Corpuscular Volume 86 fL (80-100); Mean Platelet Volume 10.2 fL (9.1-12.4); NRBC ABSOLUTE 0.04 K/mm3 (0.00-0.02); NRBC Auto 2.8 /100 WBC (0.0-0.2); RDW Coefficient Variation 20.2 % (11.7-14.2); RDW Standard Deviation 54.6 fL (35.1-46.3); Red Blood Cell Count 2.53 M/mm3 (4.30-5.90); White Blood Cell Count 1.42 K/mm3 (4.00-11.30)
[2023-01-30 05:38] LABS: Platelet Count 43 K/mm3 (150-400)
[2023-01-30 06:11] LABS: Albumin/Globulin Ratio 0.2 (0.8-1.8); Bilirubin, Total 0.8 mg/dL (0.1-1.0); Calcium, Blood 7.8 mg/dL (8.5-10.1); Creatinine, Blood 1.83 mg/dL (0.60-1.20); Potassium, Blood 3.7 mmol/L (3.5-5.5)
--- NOTE | 2023-01-30 07:30 | NUR ---
Shift Summary Pt depressed and not eating but still drinking water. Continent/incontinent. C/O of some rib pain and difficulty sleeping but declined to take Tylenol stating it does not work. Plan is to D/C into LTC hospice once bed is avialable.
--- NOTE | 2023-01-30 11:45 | NUR ---
Met with Orlando and two of his friends at bedside. Orlando reports he will be discharging today with hospice services. He will be going to [facility] as a private pay hospice client. He would like to have pain medication and immodium prior to his discharge. Nursing notified. Orlando and his friends have no questions or concerns at this time.
[2023-01-30] MEDS ORDERED: ACET325 PO (12:34)
[2023-01-30] MEDS ORDERED: LOPE2C PO (12:35)
[2023-01-30] MEDS ORDERED: SIME80CH PO (12:35)
[2023-01-30] MEDS ORDERED: B-1100 M1 PO (12:36)
[2023-01-30] MEDS ORDERED: VISBIOME 112.51 EACH PO (12:36)
[2023-01-30] MEDS ORDERED: OXYC5 PO (12:37)
[2023-01-30] MEDS ORDERED: HUMALOG JU100 UNIT/2 (12:37)
[2023-01-30 12:54] LABS: SARS-Cov-2 (COVID-19) PCR, MMC NEGATIVE (NEGATIVE)
--- NOTE | 2023-01-30 15:06 | NUR ---
PT DISCHARGED AT THIS TIME PT REPORT CALLED INTO [facility]. MEDIPORT DEACCESSED AND HEP LOCKED. TRANSPORT PROVIDED. TOLERATING PO INTAKE WELL. VSS. HOSPICE CARE
== END 2023-01-30 14:39 | DRG 682 ==
LOC: ER 10:03 → MEDS 12:47 → ENPENDDIS 01-30 12:36 → MEDS 01-30 14:39
PROVIDERS: Emergency Medicine; ADMIT Internal Medicine
PROC: 30233N1 Transfusion of Nonautologous Red Blood Cells into Peripheral Vein, Percutaneous Approach (ICD-10-PCS; principal; 2023-01-26)
PROC: 3E03329 Introduction of Other Anti-infective into Peripheral Vein, Percutaneous Approach (ICD-10-PCS; 2023-01-27)
DX: N17.9 Acute kidney failure, unspecified (principal); A41.9 Sepsis, unspecified organism; D61.818 Other pancytopenia; E87.20 Acidosis, unspecified; E44.0 Moderate protein-calorie malnutrition; D46.9 Myelodysplastic syndrome, unspecified; Z51.5 Encounter for palliative care; Z66 Do not resuscitate; E86.0 Dehydration; D53.9 Nutritional anemia, unspecified; E53.8 Deficiency of other specified B group vitamins; I95.9 Hypotension, unspecified; K21.9 Gastro-esophageal reflux disease without esophagitis; G47.00 Insomnia, unspecified; E88.09 Other disorders of plasma-protein metabolism, not elsewhere classified; E78.5 Hyperlipidemia, unspecified; E83.51 Hypocalcemia; E03.9 Hypothyroidism, unspecified; E87.6 Hypokalemia; N18.30 Chronic kidney disease, stage 3 unspecified; E11.22 Type 2 diabetes mellitus with diabetic chronic kidney disease; I12.9 Hypertensive chronic kidney disease with stage 1 through stage 4 chronic kidney disease, or unspecified chronic kidney disease; Z20.822 Contact with and (suspected) exposure to COVID-19; M19.90 Unspecified osteoarthritis, unspecified site; W19.XXXA Unspecified fall, initial encounter; Z98.890 Other specified postprocedural states; Z79.4 Long term (current) use of insulin; Z87.442 Personal history of urinary calculi; Z79.2 Long term (current) use of antibiotics; Z79.84 Long term (current) use of oral hypoglycemic drugs; Z79.899 Other long term (current) drug therapy; Z68.39 Body mass index [BMI] 39.0-39.9, adult; Z79.52 Long term (current) use of systemic steroids
CPT/HCPCS: 0202U; 36415; 36430; 71045; 80048; 80053; 80069; 81001; 82330; 82947; 83605; 83735; 83880; 84145; 84443; 85025; 85027; 86850; 86900; 86901; 86923; 87040; 87507; 93005; 93010; 96374; 97110; 97163; 97530; 99285-25; A9270; J0456; J0612; J1642; J1940; J1956; J2543; J7030; J7050; P9016; U0002